=== PATIENT | male | born 1975 | race Caucasian/White ===

== ENCOUNTER 2021-12-13 19:46 | Emergency (ER) | payer SELFPAY ==
[~2021-12-13] VITALS: Ht 182.9 cm; Wt 124.3 kg
[2021-12-13 20:45] VITALS: BP 153/99
--- NOTE | 2021-12-13 20:48 | NUR ---
PT SENT TO [facility]OBBY. STATES HE WILL BE BY HIS CAR.
== END 2021-12-13 23:43 | disposition left against medical advice (07) ==
LOC: MED 19:46
DX: H53.142 Visual discomfort, left eye (principal); Z53.21 Procedure and treatment not carried out due to patient leaving prior to being seen by health care provider